=== PATIENT | female | born 1995 | race African-American/Black ===

== ENCOUNTER 2018-11-27 04:35 | Inpatient (IN) | payer OTHER ==
[2018-11-27] MEDS ORDERED: BUTORPHANOL 1 MG/ML INJ IV PRN (04:52)
[2018-11-27] MEDS ORDERED: MEPERIDINE HCL 25 MG/0.5 ML IV PRN (04:52)
[2018-11-27] MEDS ORDERED: MIDAZOLAM HCL 2 MG/2 ML INJ IV PRN (04:52)
[2018-11-27] MEDS ORDERED: CARBOPROST TROME 250 MCG/ML IM PRN (04:52)
[2018-11-27] MEDS ORDERED: Ringers Lactate 1,000 ML IV PRN (04:52)
[2018-11-27] MEDS ORDERED: PROMETHAZINE 25 MG/ML VIAL IM PRN (04:52)
[2018-11-27] MEDS ORDERED: METHYLERGONOVINE 0.2MG/ML AMP IM PRN (04:52)
[2018-11-27] MEDS ORDERED: OXYTOCIN/LR 20 UNIT/1,000 ML BAG IV SCH ×2 (05:00→10:00)
[2018-11-27] MEDS ORDERED: Ringers Lactate 1,000 ML IV SCH (05:00)
[2018-11-27 05:09] LABS: RPR Titer ND
[2018-11-27 05:11] VITALS: BMI 32.9
[2018-11-27 05:16] LABS: Urine Appearance CLOUDY; Urine Bilirubin NEGATIVE (NEG); Urine Blood 2+ (NEG); Urine Color YELLOW; Urine Glucose NEGATIVE (NEG); Urine Protein TRACE (NEG); Urine pH 7.5 (5.0-7.0)
[2018-11-27 05:17] LABS: Absolute Lymphocytes (CBC) 1.5 K/uL (0.7-4.9); Absolute Monocytes 0.6 K/uL (0.1-1.3); Absolute Neutrophil 4.1 K/uL (1.8-8.0); Basophils % 0.3 % (0-1.3); Eosinophils % 0.6 % (0-4.4); Lymphocytes % 24.2 % (15.3-44.8); MPV 11.2 fL (7.6-11.3); Monocytes % 9.8 % (3.3-12.3); RBC Red Blood Cell Count 4.85 M/uL (3.86-4.86)
[2018-11-27] MEDS ORDERED: OXYTOCIN/LR 20 UNIT/1,000 ML BAG IV ONE (05:23)
[2018-11-27 05:24] LABS: Urine Microscopic Reflex ORDER UMIC
[2018-11-27 06:06] LABS: Urine Culture Reflex Order REFLEXED
[2018-11-27 06:07] LABS: Urine Bacteria 20-50 /HPF (<20); Urine RBC <5 /HPF (NONE SEEN)
--- NOTE | 2018-11-27 07:51 | PREOPHP ---
Date of Admission: 11/27/2018 This is a 23-year-old 2, para 1, 39 weeks. Rh positive, immune to Rubella. Negative beta st rep screen. Uncomplicated , for elective induction. Full counseling prior to admission, pr os and cons. 3 to 3.5 cm, slightly posterior, 50% effaced, vertex, well applied. FHTs normal, react kelly. Alis regularly, but the patient is not uncomfortable at this point. Rupture of membrane s, clear fluid. Labor talk given. Anticipate more rapid progress once she gets to 5 cm probably. T he patient will probably be requesting epidural anesthesia, which she does not need right now accordi ng to the patient's own account, but once she gets a more active labor, probably we will request epid ural. Full labor talk given. JULIANN/KAMILLE Voice ID: [id number]
[2018-11-27] MEDS ORDERED: FENTANYL/BUPIVACAINE/NS/PF 200 MCG/100 ML BAG EP PRN (08:31)
[2018-11-27] MEDS ORDERED: BUPIVACAINE 0.25% PF 10 ML VIAL IV PRN (08:32)
[2018-11-27] MEDS ORDERED: FENTANYL CITR 100 MCG/2 ML IV ONE (08:33)
[2018-11-27] MEDS ORDERED: LIDOCAINE 1% 20 ML MDV ONE (09:36)
[2018-11-27] MEDS ORDERED: DIPHENHYDRAMINE 25 MG TAB/CAP PO PRN (09:45)
[2018-11-27] MEDS ORDERED: ACETAMINOPHEN 500 MG TAB PO PRN (09:45)
[2018-11-27] MEDS ORDERED: Oxycodone HCl/Acetaminophen 1 TAB TAB PO PRN ×2 (09:45)
[2018-11-27] MEDS ORDERED: BISACODYL 10 MG RECTAL SUPP RECT PRN (09:45)
[2018-11-27] MEDS ORDERED: DOCUSATE NA/SENNA CONC 1 TAB PO PRN (09:45)
[2018-11-27] MEDS ORDERED: IBUPROFEN 200 MG TAB PO PRN (09:45)
[2018-11-27] MEDS ORDERED: Ringers Lactate 3,000 ML IV ONE (10:29)
[2018-11-27] MEDS ORDERED: Ringers Lactate 1,000 ML IV ONE (10:35)
[2018-11-27 22:35] LABS: RPR (Rapid Plasma Reagin) NON-REACT (NON-REACT)
[2018-11-28 07:03] VITALS: BP 123/71; TEMP 97.1
--- NOTE | 2018-11-28 08:42 | DS ---
A 23-year-old 2, para 1, 39 weeks, delivered a 7- pound plus male . Apgars 9 and 9. N o episiotomy. No lacerations suturing. Luis delivery of the placenta was inspected an d noted to be intact and normal. 300-350 cc estimated blood loss. Rh positive. Immune to Rubella. Negative beta strep screen. is afebrile, ambulating, and voiding. Lochia is normal. No post epidural problems. Full dismissal instructions given. Tramadol for analgesia, although the pa tient may elect to take Motrin instead. She is breast and bottle feeding, full discussion. The edison ent has requested Depo-Provera prior to dismissal. This has been discussed in the office and again t mackenzie. We will comply with her wishes. Final Diagnoses: Term intrauterine 39 weeks. Vaginal delivery. Epidural anesthesia. Dep o-Provera at patient request. JULIANN/KAMILLE Voice ID: [id number] Report ID: [id number]
[2018-11-28] MEDS ORDERED: MEDROXYPROGEST ACET 150 MG/ML IM SCH (09:00)
[2018-12-01 05:06] LABS: HBsAG Nonreactive (Nonreactive)
--- NOTE | 2018-12-03 17:50 | OP ---
Surgeon: Efrain Escobedo MD A 23-year-old 2, para 1, 39 weeks. Rh positive, immune to Rubella, negative beta strep scree n. Uneventful first stage, delivery of a 7 pound plus male , Apgars 9 and 9. No episiotomy. No laceration worthy of suturing. Schultze delivery of the placenta, which was inspected and noted t o be intact and normal, 350 estimated blood loss, tolerated all procedures well. Final Diagnoses: 1.Term intrauterine . 2.Vaginal delivery. JULIANN/KAMILLE Voice ID: [id number] Report ID: [id number]
--- NOTE | 2018-12-04 15:33 | OP ---
Surgeon: Efrain Escobedo MD A 23-year-old 2, para 1, 39 weeks, Rh positive, immune to Rubella. Negative beta strep scree n for induction, 3 to 2.5 cm on admission. Rupture of membranes, clear fluid. The patient progresse d rapidly thereafter at 5 cm, requested epidural anesthesia. As soon as the epidural was in, the pat ient was checked, was complete, and on the perineum. Second stage of about 10 to 15 minutes. Sponta neous vaginal delivery of an estimated 7-pound male infant, Apgars 9 and 9. No episiotomy. No lacer ations worthy of suturing. Luis delivery of the placenta, which was inspected and noted be intact and normal. Estimated blood loss 300 to 350 cc. The patient tolerated all procedures well. Solomon al never really worked very well. Final Diagnoses: 1.Term intrauterine 39 weeks. 2.Labor induction. 3.Vaginal delivery. 4.Epidural anesthesia. JULIANN/KAMILLE Voice ID: [id number] Report ID: [id number]
== END 2018-11-28 12:20 | disposition home or self-care (01) | DRG 807 ==
LOC: 2ND-WC 04:35
PROVIDERS: ADMIT Specialist; ATTEND Specialist
PROC: 10E0XZZ Delivery of Products of Conception, External Approach (ICD-10-PCS; principal; 2018-11-27)
PROC: 10907ZC Drainage of Amniotic Fluid, Therapeutic from Products of Conception, Via Natural or Artificial Opening (ICD-10-PCS; 2018-11-27)
DX: O80 Encounter for full-term uncomplicated delivery (principal); Z37.0 Single live birth; Z3A.39 39 weeks gestation of pregnancy
CPT/HCPCS: 36415; 81003; 81015; 85025; 86592; 86901; 87086; 87088; 87340; J0595; J1050; J2175; J2210; J2550; J2590; J3010

== ENCOUNTER 2019-12-18 16:55 | Emergency (ER) | payer OTHER, SELFPAY ==
[2019-12-18] MEDS ORDERED: HYDROCODONE/APAP 10/325 TAB ONE (17:18)
--- NOTE | 2019-12-18 17:58 | ER ---
Nurse's Notes [facility] Name: Lenora Galvan Age: 24 yrs Sex: Female : 1995 Arrival Date: 12/18/2019 Time: 16:57 Bed 5 Private MD: Diagnosis: Unspecified fracture of the lower end of right radius Presentation: 12/17 17:00 Chief complaint: Patient states: slid into third base playing softball around 0900 this dm5 morning. deformity noted to right wrist. Coronavirus screen: The patient has NOT traveled to a country currently being monitored by the [facility] within the last 14 days. Proceed with normal triage procedures. The patient has NOT had contact with any known and/or suspected case of coronavirus. Proceed with normal triage procedures. Ebola Screen: Patient negative for fever greater than or equal to 101.5 degrees Fahrenheit, and additional compatible Ebola Virus Disease symptoms Patient denies exposure to infectious person. Patient denies travel to an Ebola-affected area in the 21 days before illness onset. No symptoms or risks identified at this time. Initial Sepsis Screen: Does the patient meet any 2 criteria? No. Patient's initial sepsis screen is negative. Does the patient have a suspected source of infection? No. Patient's initial sepsis screen is negative. Risk Assessment: Do you want to hurt yourself or someone else? Patient reports no desire to harm self or others. 17:00 Method Of Arrival: Ambulatory dm5 17:00 Acuity: JESU 3 dm5 Historical: - Allergies: 17:03 No Known Allergies; dm5 - Immunization history:: Adult Immunizations up to date. - Social history:: Smoking status: Patient denies any tobacco usage or history of. Screenin:07 Abuse screen: Denies threats or abuse. Denies injuries from another. Nutritional hb screening: No deficits noted. Tuberculosis screening: No symptoms or risk factors identified. Fall Risk None identified. Assessment: 17:20 General: Appears in no apparent distress. Behavior is calm, cooperative. Pain: Pain hb currently is 10 out of 10 on a pain scale. Neuro: Level of Consciousness is awake, alert, obeys commands, Oriented to person, place, time, situation. Cardiovascular: Capillary refill < 3 seconds Patient's skin is warm and dry. Respiratory: Airway is patent Respiratory effort is even, unlabored, Respiratory pattern is regular, symmetrical. GI: No signs and/or symptoms were reported involving the gastrointestinal system. : No signs and/or symptoms were reported regarding the genitourinary system. EENT: No signs and/or symptoms were reported regarding the EENT system. Derm: Skin is pink, warm \T\ dry. Musculoskeletal: Swelling right wrist. 18:17 Reassessment: Patient appears in no apparent distress at this time. Patient and/or hb family updated on plan of care and expected duration. Pain level reassessed. Patient is alert, oriented x 3, equal unlabored respirations, skin warm/dry/pink. 19:01 Reassessment: Splint checked by CAMILLE Mas. hb Vital Signs: 17:05 BP 117 / 71; Pulse 102; Resp 18; Temp 97.8; Pulse Ox 99% on R/A; Weight 73.03 kg; dm5 Height 5 ft. 4 in. (162.56 cm); Pain 10/10; 17:05 Body Mass Index 27.64 (73.03 kg, 162.56 cm) dm5 ED Course: 16:57 Patient arrived in ED. mr 16:58 Brittneeelysia Chace, RESIDENTIAL LIVING ASSISTANT-C is PSYCHIATRICP. la1 16:58 Harish London MD is Attending Physician. la1 17:02 Triage completed. dm5 17:06 Farida Caldera, OPAL is Primary Nurse. hb 17:07 Arm band placed on. hb 17:20 Patient has correct armband on for positive identification. Bed in low position. Call hb light in reach. 17:56 Naren Jaffe MD is Referral Physician. la1 18:03 Wrist Right 3 View XRAY In Process Unspecified. EDMS 18:40 Rolando wrap to right elbow and right wrist Orthoglass splint: Sugar tong splint applied on sg right arm. Sling applied to right arm. a green ortho sheet has been filled out completely and placed on the chart. 19:00 No provider procedures requiring assistance completed. Patient did not have IV access hb during this emergency room visit. Administered Medications: 17:20 Drug: Cameron 10 mg-325 mg 1 tabs Route: PO; hb 17:59 Follow up: Response: No adverse reaction hb Outcome: 17:57 Discharge ordered by . la1 19:02 Discharged to home ambulatory, with family. hb 19:02 Condition: stable 19:02 Discharge instructions given to patient, Instructed on discharge instructions, follow up and referral plans. medication usage, Demonstrated understanding of instructions, follow-up care, medications, splint care, Prescriptions given X 1. 19:11 Patient left the ED. sg Signatures: Dispatcher [employer] Tricia Yang RN RN Naren Han RN RN sg Montse NietoChace, RESIDENTIAL LIVING ASSISTANT-C RESIDENTIAL LIVING ASSISTANT-Cla1 Farida Caldera RN RN
--- NOTE | 2019-12-18 17:58 | EDPHYS ---
Physician Documentation [facility] Name: Lenora Galvan Age: 24 yrs Sex: Female : 1995 Arrival Date: 12/18/2019 Time: 16:57 Bed 5 Private MD: ED Physician Harish London HPI: 12/17 17:26 This 24 yrs old Black Female presents to ER via Ambulatory with complaints of Wrist la1 Injury. 17:26 The patient or guardian reports deformity, pain. The complaints affect the right wrist la1 diffusely. Context: resulted from playing sports, softball. Onset: The symptoms/episode began/occurred this morning. Modifying factors: The symptoms are alleviated by nothing, the symptoms are aggravated by movement. Associated signs and symptoms: Pertinent negatives: cyanosis distally, decreased sensation distally, numbness distally, tingling distally. Compartment Syndrome negative for numbness, tingling. The patient has not experienced similar symptoms in the past. Historical: - Allergies: 17:03 No Known Allergies; dm5 - Immunization history:: Adult Immunizations up to date. - Social history:: Smoking status: Patient denies any tobacco usage or history of. ROS: 17:27 Constitutional: Negative for fever, chills, and weight loss, Eyes: Negative for injury, la1 pain, redness, and discharge, ENT: Negative for injury, pain, and discharge, Neck: Negative for injury, pain, and swelling, Cardiovascular: Negative for chest pain, palpitations, and edema, Respiratory: Negative for shortness of breath, cough, wheezing, and pleuritic chest pain, Abdomen/GI: Negative for abdominal pain, nausea, vomiting, diarrhea, and constipation, Back: Negative for injury and pain. 17:27 Skin: Negative for injury, rash, and discoloration. 17:27 MS/extremity: Positive for deformity, pain, of the right wrist. Exam: 17:28 Hand exam: ROM: limited passive range of motion due to pain, Pulses: noted to be 3+ in la1 the right radial artery and left radial artery. 17:28 Constitutional: This is a well developed, well nourished patient who is awake, alert, and in no acute distress. Head/Face: Normocephalic, atraumatic. ENT: Mucous membranes moist. Neck: Trachea midline, Chest/axilla: Normal chest wall appearance and motion. Nontender with no deformity. No lesions are appreciated. Cardiovascular: Regular rate and rhythm with a normal S1 and S2 17:28 Skin: Warm, dry with normal turgor. Normal color with no rashes, no lesions, and no evidence of cellulitis. 17:28 Musculoskeletal/extremity: Extremities: noted in the right wrist: deformity, pain, Pulses: noted to be 3+ in the right radial artery and left radial artery, Sensation intact. Vital Signs: 17:05 BP 117 / 71; Pulse 102; Resp 18; Temp 97.8; Pulse Ox 99% on R/A; Weight 73.03 kg; dm5 Height 5 ft. 4 in. (162.56 cm); Pain 10/10; 17:05 Body Mass Index 27.64 (73.03 kg, 162.56 cm) dm5 MDM: 17:06 Patient medically screened. la1 17:54 Data reviewed: vital signs, nurses notes, radiologic studies, I have discussed the la1 patient's presentation/case with the attending Emergency Department Physician; and as a result, I will discharge patient. Data interpreted: Pulse oximetry: on room air is 99 %. Interpretation: normal. Counseling: I had a detailed discussion with the patient and/or guardian regarding: the historical points, exam findings, and any diagnostic results supporting the discharge/admit diagnosis, radiology results, the need for outpatient follow up, a orthopedic surgeon. 12/17 17:03 Order name: Wrist Right 3 View XRAY; Complete Time: 18:34 la1 12/17 17:53 Order name: Sugar Tong Forearm Splint; Complete Time: 18:45 la1 Administered Medications: 17:20 Drug: [place] 10 mg-325 mg 1 tabs Route: PO; hb 17:59 Follow up: Response: No adverse reaction hb Disposition: 12/18/19 17:57 Discharged to Home. Impression: Unspecified fracture of the lower end of right radius. - Condition is Stable. - Discharge Instructions: Radial Fracture, Radial Head Fracture. - Prescriptions for Tylenol- Codeine #3 300-30 mg Oral Tablet - take 2 tablets by ORAL route every 6 hours As needed; 20 tablet. - Medication Reconciliation Form, Thank You Letter, Prescription Opioid Use form. - Follow up: Naren Jaffe MD; When: 5 - 6 days; Reason: Recheck today's complaints, Re-evaluation by your physician. - Problem is new. - Symptoms have improved. Addendum: 12/20/2019 09:22 Co-signature as Attending Physician, Harish London MD I agree with the assessment and c crane plan of care. Signatures: Dispatcher [employer] Tricia Yang RN RN dmNaren Guerrero RN RN sg Anderson, Corey, MD MD cha Attema, Lee, PROPERTY UNDERWRITER-C PROPERTY UNDERWRITER-[facility] Farida Caldera RN RN Corrections: (The following items were deleted from the chart) 12/17 19:11 17:57 12/18/2019 17:57 Discharged to Home. Impression: Unspecified fracture of the sg lower end of right radius. Condition is Stable. Forms are Medication Reconciliation Form, Thank You Letter, Antibiotic Education, Prescription Opioid Use. Follow up: Naren Jaffe; When: 5 - 6 days; Reason: Recheck today's complaints, Re-evaluation by your physician. Problem is new. Symptoms have improved. la1
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
[2019-12-18 19:17] VITALS: BP 117/71; TEMP 97.8; O2SAT 99
== END 2019-12-18 19:11 | disposition home or self-care (01) ==
LOC: ER 16:55
PROC: 2W3CX1Z Immobilization of Right Lower Arm using Splint (ICD-10-PCS; principal; 2019-12-18)
DX: S52.501A Unspecified fracture of the lower end of right radius, initial encounter for closed fracture (principal); W18.30XA Fall on same level, unspecified, initial encounter; Y93.64 Activity, baseball; Y92.328 Other athletic field as the place of occurrence of the external cause; Y99.8 Other external cause status
CPT/HCPCS: 99284

== ENCOUNTER 2022-01-13 14:24 | Emergency (ER) | payer SELFPAY ==
--- OUTSIDE RECORDS SUMMARY | 2022-01-13 14:28 | XMS REPORT | Continuity of Care Document ---
:1995 Author Organization [facility] t Address [address] [place] [address] Care Team Providers Name Role Phone PCP, DOES NOT HAVE A Primary Care Physician Unavailable Krystian CLARKE Attending Clinician Unavailable Krystian Pedro Attending Clinician Problems Condition Condition Condition Status Onset Resolution Last Treating Co mments Source Name Details Category Date Date Treatment Clinician Date No known No known Disease Unive rs active active ity of problems problems [facility] Allergies, Adverse Reactions, Alerts Allergy Allergy Status Severity Reaction(s) Onset Inactive Treating Comm ents Source Name Type Date Date Clinician NO KNOWN Drug Active Univers ALLERGIE Class ity of S [facility] Social History Social Habit Start Date Stop Date Quantity Comments Source History [facility] o [facility] Alcohol Std Drinks Medica l Branch History [facility] o [facility] Alcohol Binge Medical Bra [facility] Sex Assigned At [facility] Medical Branch Alcohol intake 2020-01-10 2020-01-10 [facility] 00:00:00 00:00:00 Medical Branch History [facility] 2019-12-23 2019-12-23 2 University o [facility] Alcohol Frequency 00:00:00 00:00:00 Medical Branch Smoking Status Start Date Stop Date Source Never smoker [facility] Branch Medications Ordered Filled Start Stop Current Ordering Indication Dosage Frequency Signature Comments Components Source Medication Medication Date Date Medication? Clinician (SIG) Name Name acetaminoph 2020-0 Yes Take by Un max en with 3-19 mouth. ity of codeine 19:25: [place] (TYLENOL-CO 59 Medical DEINE #3 Branch ORAL) acetaminoph 2020-0 Yes Take by Un max en with 3-19 mouth. ity of codeine 19:25: [place] (TYLENOL-CO 59 Medical DEINE #3 Branch ORAL) acetaminoph 2020-0 Yes Take by Un max en with 3-19 mouth. ity of codeine 19:25: [place] (TYLENOL-CO 59 Medical DEINE #3 Branch ORAL) acetaminoph 2020-0 Yes Take by Un max en with 3-19 mouth. ity of codeine 19:25: [place] (TYLENOL-CO 59 Medical DEINE #3 Branch ORAL) acetaminoph 2020-0 Yes Take by Un max en with 3-19 mouth. ity of codeine 19:25: [place] (TYLENOL-CO 59 Medical DEINE #3 Branch ORAL) acetaminoph 2020-0 Yes Take by Un max en with 3-19 mouth. ity of codeine 19:25: [place] (TYLENOL-CO 59 Medical DEINE #3 Branch ORAL) acetaminoph 2020-0 Yes Take by Un max en with 3-19 mouth. ity of codeine 19:25: [place] (TYLENOL-CO 59 Medical DEINE #3 Branch ORAL) acetaminoph 2020-0 Yes Take by Un max en with 3-19 mouth. ity of codeine 19:25: [place] (TYLENOL-CO 59 Medical DEINE #3 Branch ORAL) Vital Signs Vital Name Observation Time Observation Value Comments Source Body height 2020-01-10 20:51:00 162.6 cm [facility] Body weight 2020-01-10 20:51:00 74.39 kg [facility] BMI 2020-01-10 20:51:00 28.15 kg/m2 [facility] Body height 2019-12-30 15:40:00 162.6 cm [facility] Body weight 2019-12-30 15:40:00 74.39 kg [facility] BMI 2019-12-30 15:40:00 28.15 kg/m2 [facility] Body height 2019-12-23 19:24:00 162.6 cm [facility] Body weight 2019-12-23 19:24:00 74.39 kg [facility] BMI 2019-12-23 19:24:00 28.15 kg/m2 [facility] Procedures Procedure Date / Time Performed Performing Clinician Sourc e XR WRIST <3 VW RIGHT 2019-12-30 15:46:06 [facility] <3 VW RIGHT 2019-12-23 20:02:15 Holli Clarke Univers [facility] Encounters Start End Encounter Admission Attending Care Care Encounter Source Date/Time Date/Time Type Type Clinicians Facility Department ID 2020-01-31 2020-01-31 [facility] [id number] Univers 15:30:00 15:30:00 HOLLI [id number] ity [facility] 2020-01-31 2020-01-31 [facility] [id number] Univers 15:30:00 15:30:00 [facility] 2020-01-10 2020-01-10 [facility] [id number] Univers 15:43:54 16:00:25 Visit [facility] [id number] it y of Surgical [id number] Jamal as Specialti [id number] Me dical es [address] [facility] 2020-01-10 2020-01-10 [facility] [id number] Univers 15:30:00 15:30:00 HOLLI ity [facility] 2020-01-10 2020-01-10 [facility] [id number] Univers 15:30:00 15:30:00 HOLLI [facility] 2019-12-30 2019-12-30 [facility] [id number] Univers 10:46:06 23:59:00 [facility] 2019-12-30 2019-12-30 [facility] [id number] Univers 10:46:00 23:59:00 Encounter [facility] [id number] ity of Surgical [id number] Jamal as Specialti [id number] Me dical es [facility] 2019-12-30 2019-12-30 [facility] [id number] Univers 10:38:49 11:04:44 Visit [facility] [id number] it y of Surgical [id number] Jamal as Specialti [id number] Me dical es [address] [facility] 2019-12-30 2019-12-30 [facility] [id number] Univers 11:00:00 11:00:00 HOLLI [id number] ity [facility] 2019-12-23 2019-12-23 Outpatient R [facility]L [facility] [id number] Univers 15:02:15 23:59:00 HOLLI ity [facility] 2019-12-23 2019-12-23 [facility] [id number] Univers 15:02:00 23:59:00 Encounter [facility] [id number] ity of Surgical [id number] Jamal as Specialti [id number] [place] dical es [address] [place] 2019-12-23 2019-12-23 Office [facility] [id number] Univers 14:17:31 15:28:50 Visit [facility] [id number] it y of Surgical [id number] Jamal as Specialti [id number] [place] dical es [address] [facility] Results Test Description Test Time Test Comments Results Result [facility] e Comments XR WRIST <3 VW 2019-12-30 Facture remains Unive rsity of RIGHT 16:05:14 in acceptable [place] [facility] alignment, and Branch intra-articular split and a transverse fracture there is no progression in the volar or dorsal angulation are taken in cast XR WRIST <3 VW 2019-12-23 [facility] RIGHT 20:28:13 fracture distal [place] [facility] ical radial metaphysis Branch with intra-articular split the volar angulation has not progressed from the previous x-ray and the fracture is still nondisplaced and the intra-articular split.
[2022-01-13 15:03] LABS: Urine Blood Negative (Negative); Urine Glucose Negative (Negative); Urine Protein Negative (Negative); Urine pH 6.5 (5.0-7.0)
[2022-01-13] MEDS ORDERED: TETANUS & DIPHTHERIA TOX,ADULT 0.5 ML VIAL ONE (15:09)
[2022-01-13 15:23] LABS: Absolute Lymphocytes (CBC) 1.7 K/uL (0.7-4.9); Hematocrit 39.6 % (36.0-45.0); Lymphocytes % 20.8 % (15.3-44.8); RBC Red Blood Cell Count 5.43 M/uL (3.86-4.86)
[2022-01-13 15:27] LABS: BUN Blood Urea Nitrogen 5 mg/dL (7-18); Bicarbonate 22 mmol/L (21-32); Glucose Level 89 mg/dL (74-106); Potassium 3.6 mmol/L (3.5-5.1); Sodium Level 141 mmol/L (136-145)
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
[2022-01-13 17:43] VITALS: BP 149/73; TEMP 98.3; O2SAT 98
== END 2022-01-13 17:39 | disposition home or self-care (01) ==
LOC: ER 14:24
DX: S00.83XA Contusion of other part of head, initial encounter (principal); S39.012A Strain of muscle, fascia and tendon of lower back, initial encounter; S83.91XA Sprain of unspecified site of right knee, initial encounter; R10.9 Unspecified abdominal pain; V49.9XXA Car occupant (driver) (passenger) injured in unspecified traffic accident, initial encounter; Z23 Encounter for immunization
CPT/HCPCS: 36415; 70450; 71260; 72125; 74177; 80048; 81003; 81025; 85025; 90471; 90714; 99284; Q9967